=== PATIENT | male | born 1930 | race Caucasian/White ===

== ENCOUNTER → 2017-02-23 | Outpatient (CLI) | payer MEDICARE, BC | END | disposition home or self-care (01) | LOC: PCVCCLINIC 13:35 | PROVIDERS: ATTEND Internal Medicine Cardiovascular Disease | DX: I10 Essential (primary) hypertension (principal); I35.0 Nonrheumatic aortic (valve) stenosis; E11.8 Type 2 diabetes mellitus with unspecified complications; R60.0 Localized edema; R06.02 Shortness of breath; I51.7 Cardiomegaly; E78.4 Other hyperlipidemia; R94.31 Abnormal electrocardiogram [ECG] [EKG]; Z79.899 Other long term (current) drug therapy; Z79.4 Long term (current) use of insulin | CPT/HCPCS: 80061; 93005; G0463 ==

== ENCOUNTER → 2017-08-25 | Outpatient (CLI) | payer MEDICARE, BC | END | disposition home or self-care (01) | LOC: PCVCCLINIC 13:19 | DX: I11.0 Hypertensive heart disease with heart failure (principal); I50.43 Acute on chronic combined systolic (congestive) and diastolic (congestive) heart failure; E78.00 Pure hypercholesterolemia, unspecified; I35.0 Nonrheumatic aortic (valve) stenosis; R94.31 Abnormal electrocardiogram [ECG] [EKG]; Z79.899 Other long term (current) drug therapy | CPT/HCPCS: 80061; 93005; G0463 ==

== ENCOUNTER → 2018-02-09 | Outpatient (CLI) | payer MEDICARE, BC ==
--- NOTE | 2018-02-09 14:45 | PCVCIMAG ---
APPROVED REPORT Study performed: 02/09/2018 10:46:16 EXAM: Comprehensive 2D, Doppler, and color-flow Echocardiogram Patient Location: Echo lab Status: routine BSA: 2.30 HR: 73 bpmBP: 130/84 mmHg Rhythm: NSR w/ PVCs Other Information Study Quality: Adequate Indications Congestive Heart Failure Dyspnea severe aortic stenosis, mitral stenosis 2D Dimensions IVSd: 17.07 (7-11mm)LVOT Diam: 22.26 (18-24mm) LVDd: 39.96 mm PWd: 15.36 (7-11mm)Ascending Ao: 34.98 (22-36mm) LVDs: 29.00 (25-40mm) Left Atrium: 48.88 (27-40mm) Aortic Root: 33.15 mm Volumes Left Atrial Volume (Systole) Single Plane 4CH: 106.03 mLSingle Plane 2CH: 137.66 mL LA ESV Index: 54.00 mL/m2 Aortic Valve AoV Peak Mendoza.: 4.49 m/s AO Peak Gr.: 80.54 mmHgLVOT Max P.33 mmHg AO Mean Gr.: 54.60 mmHgLVOT Mean P.03 mmHg AO V2 Mean: 3.56 m/sLVOT Max V: 1.04 m/s AO V2 VTI: 107.06 cmLVOT Mean V: 0.66 m/s KENDRA (VTI): 0.87 [id number] V1 VTI: 24.06 cm KENDRA Vmax: 0.90 cm2 SV (LVOT): 93.60 mL Mitral Valve MV Peak Gr.: 10.63 mmHg MV Mean Gr.: 4.81 mmHgE/A Ratio: 0.9 MV Decel. Time: 346.26 ms MV E Max Mendoza.: 1.44 m/s MV A Mendoza.: 1.53 m/s MV Max Mendoza.: 1.63 m/s MV Mean Mendoza.: 1.03 m/s MV VTI: 541.93 mm MVA VTI: 172.72 mm2 MV PHT: 125.71 ms MVA (PHT): 1.75 cm2 IVRT: 83.04 ms Pulmonary Valve PV Peak Mendoza.: 1.23 m/sPV Peak Gr.: 6.04 mmHg Pulmonary Vein P Vein S: 0.26 m/sP Vein A: 0.28 m/s P Vein D: 0.34 m/sP Vein A Dur.: 128.0 msec P Vein S/D Ratio: 0.76 Tricuspid Valve TR Peak Mendoza.: 2.41 m/s TR Peak Gr.: 23.26 mmHg Left Ventricle The left ventricle is normal size. There is normal LV segmental wall motion. Moderate concentric left ventricular hypertrophy. Left ventricular systolic function is normal. The left ventricular ejection fraction is within the normal range. LVEF is 50-55%. Grade I - abnormal relaxation pattern. Right Ventricle The right ventricle is normal size. The right ventricular systolic function is normal. Atria Left atrium is severely dilated. Right atrium is moderately dilated. Aortic Valve The aortic valve is severely calcified. No aortic regurgitation is present. There is severe valvular aortic stenosis. Calculated aortic valve area is .9 cm2 with maximum pressure gradient of 81 mmHg and mean pressure gradient of 55 mmHg. Mitral Valve Heavy mitral annular and leaflet calcification. Trace mitral regurgitation. Mild mitral stenosis present. Calculated mitral valve area is 1.7 cm2 with maximum pressure gradient of 10.6 mmHg and mean pressure gradient of 4.8 mmHg. Tricuspid Valve The tricuspid valve is normal in structure. Mild tricuspid regurgitation with PAP of 33 mmHg. Pulmonic Valve The pulmonary valve is normal in structure. There is no pulmonic valvular regurgitation. Great Vessels The aortic root is normal in size. IVC is normal in size and collapses >50% with inspiration. Pericardium There is no pericardial effusion. There is no pleural effusion. <Conclusion> Moderate concentric left ventricular hypertrophy. LVEF is 50-55%. Grade I - abnormal relaxation pattern. The right ventricle is normal size. Moderate concentric left ventricular hypertrophy. Left atrium is severely dilated. Right atrium is moderately dilated. The aortic valve is severely calcified. There is severe valvular aortic stenosis. Calculated aortic valve area is .9 cm2 with maximum pressure gradient of 81 mmHg and mean pressure gradient of 55 mmHg. Trace mitral regurgitation. Mild tricuspid regurgitation with PAP of 33 mmHg. The aortic root is normal in size. There is no pericardial effusion.
== END | disposition home or self-care (01) ==
LOC: PCVCIMAG 12:43
PROVIDERS: ATTEND Internal Medicine Cardiovascular Disease
DX: E11.8 Type 2 diabetes mellitus with unspecified complications (principal); I07.1 Rheumatic tricuspid insufficiency; I35.0 Nonrheumatic aortic (valve) stenosis; I11.0 Hypertensive heart disease with heart failure; I50.23 Acute on chronic systolic (congestive) heart failure; R06.09 Other forms of dyspnea; Z79.4 Long term (current) use of insulin; Z79.899 Other long term (current) drug therapy
CPT/HCPCS: 93005; 93306; G0463

== ENCOUNTER → 2018-05-18 | Outpatient (CLI) | payer MEDICARE, BC | END | disposition home or self-care (01) | LOC: PCVCCLINIC 14:47 | PROVIDERS: ATTEND Internal Medicine Cardiovascular Disease | DX: E11.22 Type 2 diabetes mellitus with diabetic chronic kidney disease (principal); I13.0 Hypertensive heart and chronic kidney disease with heart failure and stage 1 through stage 4 chronic kidney disease, or unspecified chronic kidney disease; N18.2 Chronic kidney disease, stage 2 (mild); I50.23 Acute on chronic systolic (congestive) heart failure; I35.0 Nonrheumatic aortic (valve) stenosis; E78.00 Pure hypercholesterolemia, unspecified; E78.5 Hyperlipidemia, unspecified; E03.9 Hypothyroidism, unspecified; Z88.8 Allergy status to other drugs, medicaments and biological substances; Z79.4 Long term (current) use of insulin; Z86.73 Personal history of transient ischemic attack (TIA), and cerebral infarction without residual deficits | CPT/HCPCS: 93005; G0463 ==

== ENCOUNTER → 2018-09-08 | Outpatient (CLI) | payer MEDICARE, BC ==
--- NOTE | 2018-09-08 12:11 | PCVCIMAG ---
APPROVED REPORT Study performed: 09/08/2018 10:45:18 EXAM: Comprehensive 2D, Doppler, and color-flow Echocardiogram Patient Location: Echo lab Room #: [id number]: routine BSA: 2.30 HR: 79 bpmBP: 128/72 mmHg Rhythm: NSR Other Information Study Quality: Adequate Risk Factors: Cardiac Risk Factors: HTN, DM Indications Aortic Valve Disease Hypertension/HDD 2D Dimensions IVSd: 18.34 (7-11mm)LVOT Diam: 20.33 (18-24mm) LVDd: 50.75 mm PWd: 14.91 (7-11mm)Ascending Ao: 36.31 (22-36mm) LVDs: 33.37 (25-40mm) Left Atrium: 41.54 (27-40mm) Aortic Root: 32.78 mm LV Single Plane 4CH: 65.80 % LV Single Plane 2CH: 50.01 % Biplane EF: 60.0 % Volumes Left Atrial Volume (Systole) Single Plane 4CH: 99.21 mLSingle Plane 2CH: 114.49 mL Biplane LA Volume: 109.00 mLLA ESV Index: 48.00 mL/m2 Aortic Valve AoV Peak Mendoza.: 4.62 m/s AO Peak Gr.: 87.90 mmHgLVOT Max P.61 mmHg AO Mean Gr.: 61.02 mmHgLVOT Mean P.10 mmHg AO V2 Mean: 3.84 m/sLVOT Max V: 1.08 m/s AO V2 VTI: 115.10 cmLVOT Mean V: 0.85 m/s KENDRA (VTI): 0.77 [id number] V1 VTI: 27.46 cm KENDRA Vmax: 0.76 cm2 SV (LVOT): 89.09 mL Mitral Valve MV Peak Gr.: 15.00 mmHg MV Mean Gr.: 7.00 mmHgE/A Ratio: 1.2 MV Decel. Time: 308.47 ms MV E Max Mendoza.: 1.61 m/s MV A Mendoza.: 1.35 m/s MV VTI: 54.00 mm MVA (PHT): 1.60 cm2 IVRT: 69.20 ms TDI E/Lateral E': 26.83E/Medial E': 40.25 Medial E' Mendoza.: 0.04 m/s Lateral E' Mendoza.: 0.06 m/s Pulmonary Valve PV Peak Mendoza.: 0.93 m/sPV Peak Gr.: 3.46 mmHg Tricuspid Valve TV Vmax: 0.48 m/s Left Ventricle The left ventricle is normal size. There is normal LV segmental wall motion. Severe asymetric septal hypertrophy. Left ventricular systolic function is normal. The left ventricular ejection fraction is within the normal range. LVEF is 60%. The left ventricular diastolic function is normal. Right Ventricle The right ventricle is normal size. The right ventricular systolic function is normal. Atria Left atrium is severely dilated. The right atrium size is normal. Aortic Valve Aortic valve leaflets are heavily sclerotic with severely decreased opening. No aortic regurgitation is present. Severe aortic stenosis. Highest mean aortic valve gradient is 61_mmHg. Peak aortic valve gradient is 85_mmHg. Calculated KENDRA by the continuity equation is 0.7_cm2. Mitral Valve Mitral valve leaflets are moderately thickened. Moderate mitral annular calcification. There is no mitral valve regurgitation noted. Moderate mitral stenosis. Tricuspid Valve The tricuspid valve is normal in structure. There is no tricuspid valve regurgitation noted. Pulmonic Valve The pulmonary valve is normal in structure. There is no pulmonic valvular regurgitation. Great Vessels The aortic root is normal in size. The ascending aorta is normal in size. Aortic arch is not well visualized. IVC is normal in size and collapses >50% with inspiration. Pericardium There is no pericardial effusion. There is no pleural effusion. <Conclusion> The left ventricle is normal size. LVEF is 60%. The left ventricular diastolic function is normal. The right ventricle is normal size. Left atrium is severely dilated. Aortic valve leaflets are heavily sclerotic with severely decreased opening. Severe aortic stenosis. Highest mean aortic valve gradient is 61_mmHg. Peak aortic valve gradient is 85_mmHg. Calculated KENDRA by the continuity equation is 0.7_cm2. Mitral valve leaflets are moderately thickened. Moderate mitral annular calcification. Moderate mitral stenosis. There is no tricuspid valve regurgitation noted. The aortic root is normal in size. There is no pericardial effusion.
== END | disposition home or self-care (01) ==
LOC: PCVCIMAG 10:01
PROVIDERS: ATTEND Internal Medicine Cardiovascular Disease
DX: I08.0 Rheumatic disorders of both mitral and aortic valves (principal); I11.9 Hypertensive heart disease without heart failure; E11.9 Type 2 diabetes mellitus without complications; N28.9 Disorder of kidney and ureter, unspecified; I10 Essential (primary) hypertension; R06.02 Shortness of breath; E78.00 Pure hypercholesterolemia, unspecified; E78.5 Hyperlipidemia, unspecified; Z79.4 Long term (current) use of insulin
CPT/HCPCS: 36415; 80061; 93005; 93306; G0463